=== PATIENT | female | born 1985 | race Caucasian/White ===

== ENCOUNTER 2020-08-14 08:45 | Day surgery (SDC) | payer BC ==
[2020-08-11 13:29] VITALS: BMI 21.9
[2020-08-14] MEDS ORDERED: Lidocaine 1% MPF 2 ML VIAL ONE (09:14)
[2020-08-14] MEDS ORDERED: Lidocaine 4% Topical Sol 50 ML BOT ONE (10:05)
[2020-08-14] MEDS ORDERED: PROPOFOL 20 ML ONE (10:07)
== END 2020-08-14 11:40 | disposition home or self-care (01) ==
LOC: CSHSDC 08:45
PROVIDERS: ATTEND Internal Medicine Gastroenterology
DX: R10.9 Unspecified abdominal pain (principal); K31.9 Disease of stomach and duodenum, unspecified; Z87.11 Personal history of peptic ulcer disease
CPT/HCPCS: 88305; J2704